=== PATIENT | female | born 1985 | race Asian ===

== ENCOUNTER 2016-04-03 10:35 | Inpatient (IN) | payer SELFPAY ==
[~2016-04-03] VITALS: Ht 160 cm; Wt 74.8 kg
[2016-04-03] MEDS ORDERED: FENT2mCg/mL-ROPIVA0.2%/NS EPID 150 ML EP ONE (12:46)
[2016-04-03] MEDS ORDERED: fentaNYL CITRATE/PF 100 MCG/2 ML AMP ONE (12:47)
[2016-04-03] MEDS ORDERED: OXYTOCIN/NORMAL SALINE 1,000 ML IV SCH (13:01)
[2016-04-03] MEDS ORDERED: LR 1,000 ML IV SCH (13:01)
[2016-04-03] MEDS ORDERED: LR 500 ML IV ONE ×2 (13:01→21:16)
[2016-04-03] MEDS ORDERED: NALBUPHINE HCL 10 MG/ML AMP IVP PRN (13:15)
[2016-04-03] MEDS ORDERED: TERBUTALINE SULFATE 1 MG/ML VIAL SUBCUT ONE (13:15)
[2016-04-03] MEDS ORDERED: OXYTOCIN/NORMAL SALINE 1,000 ML IV ONE (13:27)
[2016-04-03 13:49] LABS: HEMATOCRIT 33.1 % (36-48); HEMOGLOBIN 11.5 g/dL (12.0-16.0); MEAN CORPUSCULAR HEMOGLOBIN 34 pg (27-31); MEAN CORPUSCULAR HGB CONC 35 % (32-36); MEAN CORPUSCULAR VOLUME 97 fL (79.0-98.0); PLATELET COUNT (AUTO) 179 K/uL (130-430); RED BLOOD CELL COUNT(AUTO) 3.41 MIL/uL (4.2-6.2); RED CELL DISTRIBUTION WIDTH 13.5 % (9.0-15.0); WHITE BLOOD COUNT (AUTO) 7.3 K/uL (4.8-10.8)
[2016-04-03 14:12] LABS: ATYPICAL LYMPHOCYTES % 0 % (0-0); BAND % (MANUAL) 2 % (0-6); BASOPHILS % (MANUAL) 0 % (0-2); EOSINOPHILS % (MANUAL) 0 % (0-7); LYMPHOCYTES % (MANUAL) 25 % (20-46); MONOCYTES % (MANUAL) 5 % (0-11)
[2016-04-03] MEDS ORDERED: DIPH-TET-PERTUS Vaccine 0.5 ML VIAL/Tdap (ADACEL) I.M. PRN (14:45)
[2016-04-03 16:48] VITALS: BP 126/75; PULSE 82; RESP 18; TEMP 97.8
[2016-04-03] MEDS ORDERED: FLU VACC QS 2016-17(36MOS+)/PF 0.5 ML/SYR SYRINGE I.M. PRN (17:00)
[2016-04-03] MEDS ORDERED: fentaNYL CITRATE/PF 100 MCG/2 ML AMP EP ONE (21:30)
[2016-04-03] MEDS ORDERED: FENT2mCg/mL-ROPIVA0.2%/NS EPID 150 ML EP SCH (21:30)
[2016-04-03] MEDS ORDERED: ePHEDrine sulfate 50 MG/ML VIAL IVP PRN (21:30)
[2016-04-03] MEDS ORDERED: HYDROcodone/ACETAMIN 5-325 MG TAB (NORCO/ VICODIN) PO PRN (22:45)
[2016-04-03] MEDS ORDERED: MEASLES,MUMPS&RUBELLA VACC/PF 12500 UNIT/0.5 ML VIAL SUBQ PRN (22:45)
[2016-04-03] MEDS ORDERED: OXYCODONE/ACETAMINOPHEN 5-325 TABLET PO PRN (22:45)
[2016-04-03] MEDS ORDERED: OXYTOCIN 10 UNIT/ML VIAL IM PRN (22:45)
[2016-04-03] MEDS ORDERED: DIPH-TET-PERTUS Vaccine 0.5 ML VIAL (ADACEL) I.M. PRN (22:45)
[2016-04-03] MEDS ORDERED: DERMOPLAST SPRAY TP PRN (22:45)
[2016-04-03] MEDS ORDERED: TEMAZEPAM 15 MG CAPSULE PO PRN (22:45)
[2016-04-03] MEDS ORDERED: METHYLERGONOVINE MALEATE 0.2 MG/ML AMP IM PRN (22:45)
[2016-04-04 06:45] LABS: HEMATOCRIT 30.8 % (36-48); HEMOGLOBIN 10.5 g/dL (12.0-16.0)
[2016-04-04] MEDS: IBUPROFEN 800 MG TABLET PO PRN ×2 (12:22→17:54)
[2016-04-04] MEDS ORDERED: SENNOSIDES/DOCUSATE SODIUM 1 TAB TABLET(SENOKOT-S) PO SCH (21:00)
[2016-04-05] MEDS: IBUPROFEN 800 MG TABLET PO PRN (00:20)
[2016-04-05] MEDS ORDERED: ROPIVACAINE 40 MG/20 ML AMP EP ONE (07:37)
== END 2016-04-05 11:09 | disposition home or self-care (01) | DRG 775 ==
LOC: SPU 10:35 → OBSVTOIN 11:32 → SPU 04-04 09:27
PROVIDERS: ADMIT Obstetrics & Gynecology; ATTEND Obstetrics & Gynecology
PROC: 10E0XZZ Delivery of Products of Conception, External Approach (ICD-10-PCS; principal; 2016-04-03)
PROC: 3E0S3CZ (ICD-10-PCS; 2016-04-03)
PROC: 00HU33Z Insertion of Infusion Device into Spinal Canal, Percutaneous Approach (ICD-10-PCS; 2016-04-03)
PROC: 0HQ9XZZ Repair Perineum Skin, External Approach (ICD-10-PCS; 2016-04-03)
DX: O70.0 First degree perineal laceration during delivery (principal); Z37.0 Single live birth; Z3A.38 38 weeks gestation of pregnancy
CPT/HCPCS: 36415; 81002-TC; 85007; 85018-TC; 85027; 86592; 86886; 86900; 86901; 90715; G0378; J2590; J2795; J3010; J7120; Q2037